=== PATIENT | born 1990 | race Caucasian/White ===

== ENCOUNTER 2021-09-06 12:29 | Outpatient (CLI) | payer OTHER ==
[2021-09-06 17:05] LABS: THYROID STIMULATING HORMONE 4.87 uIU/mL (0.34-5.60)
== END 2021-09-06 12:30 | disposition home or self-care (01) ==
LOC: LAB.S 12:29
PROVIDERS: ATTEND Nurse Practitioner Family
DX: E03.9 Hypothyroidism, unspecified (principal)
CPT/HCPCS: 36415; 84443